=== PATIENT | female | born 2000 | race Caucasian/White ===

== ENCOUNTER 2023-05-25 09:45 | Outpatient (RCR) | payer OTHER, SELFPAY ==
[2023-05-23 13:01] VITALS: BMI 21.6
[2023-05-23 13:03] VITALS: BP 106/75; PULSE 79; TEMP 37.1
--- NOTE | 2023-05-23 13:57 | PC.ADMIT ---
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 Patient reportedly took a handful of Duloxetine 2 weeks ago. She stated, I took the bottle and put it down my throat, I regretted immediately, tried to throw it up but I couldn't. Went to the ER. I had serotonin syndrome for a few days later . Patient was evaluated in [facility] ER and discharged 6 hours later. Patient reports she was living alone in an apartment which was triggering for her as she felt alone and isolated. She is currently staying with her parents for more support. She also stated she as a note from her provider for an emotional support dog to help with loneliness and isolation when she feels well enough to move back to her apartment. Patient is alert and oriented x4. Calm and cooperative. Denied SI. Regrets taking the overdose of medication. Patient given a copy of her safety plan if needed and I reviewed this with her. Patient reports she was using Marijuana dabbing daily to cope with how she was feeling and this soon became an addiction. She reports last use May 19, 2023. She is prescribed Gabapentin for Marijuana withdrawal/cravings. She stated she got rid of everything associated with using marijuana. Wants to learn healthier coping skills to deal with her emotions. Medications reconciled with patient and patient's pharmacy. Reports taking medications as prescribed. She has a history of inpatient loc in 2021.
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
--- NOTE | 2023-05-26 10:13 | HO.PHP ---
[facility] staff member received a call from Leandra, who expressed feeling anxious with attending program today. Leandra was crying when explaining what is occurring for her. Leandra voiced that she is aware that this an intensive program and mentioned she is leaving the program feeling more depressed and emotionallly drained then how she felt prior to program. Leandra disclosed that she is not certain if this is a good fit for her. Leandra had mentioned that she isn't sure if it is a good fit or not and is having a challenging time identifying where her emotions are coming from. [facility] staff validated Leandra's feelings and informed her if this is too challenging for her at this time, that is okay and she can continue to do the work with her OP therapist if she found that to be more beneficial. [facility] staff member explored if she would like to discharge from the program. Leandra disclosed that she wants to speak with her OP therapist later today. [facility] staff member was receptive.
--- NOTE | 2023-05-26 15:16 | HO.PHP ---
The clients case was reviewed and opened in treatment team.
--- NOTE | 2023-05-27 09:07 | HO.PHP ---
Leandra called this morning around 8:15am, she reported that she is withdrawing from the program as it is not, a good fit for her. Leandra sounded clear and not in distress. She was able to contract for safety and denied the endorsement of SI/SIB. Staff was informed. Additonally, Leandra was informed that her she may be contacted by [facility] staff to follow with her.
--- NOTE | 2023-05-27 09:39 | HO.PHP ---
[facility] staff member contacted Leandra to gather her next scheduled appointment due to her stating she would like to discharge from the program. [facility] staff member left a voice message and is awaiting a call back.
--- NOTE | 2023-05-27 09:58 | HO.PHP ---
[facility] staff member spoke with Leandra on the phone to collect when her next appointment are. Information is included in the DC summary.
== END 2023-05-25 23:59 | disposition home or self-care (01) ==
LOC: HO.PHPA 09:45
PROVIDERS: Visit Provider Psychiatry & Neurology Psychiatry
DX: F33.41 Major depressive disorder, recurrent, in partial remission (principal); F41.3 Other mixed anxiety disorders
CPT/HCPCS: 90791; 90853

== ENCOUNTER → 2023-05-25 09:45 | Outpatient (BNV) | payer OTHER, SELFPAY | PROVIDERS: Visit Provider Psychiatry & Neurology Psychiatry | DX: F33.41 Major depressive disorder, recurrent, in partial remission (principal); F41.3 Other mixed anxiety disorders | CPT/HCPCS: 90792 ==